=== PATIENT | female | born 1995 | race African-American/Black ===

== ENCOUNTER 2018-07-20 11:11 | Emergency (ER) | payer MEDICAID ==
[~2018-07-20] VITALS: Ht 160 cm; Wt 62.0 kg
[2018-07-20 12:59] LABS: CLARITY URINE CLOUDY (CLEAR); COLOR URINE YELLOW (YELLOW); KETONES URINE NEGATIVE (NEGATIVE); LEUKOCYTE ESTERASE URINE 1+ (NEGATIVE); NITRITE URINE NEGATIVE (NEGATIVE); OCCULT BLOOD URINE NEGATIVE (NEGATIVE); PROTEIN URINE TRACE (NEGATIVE); SPECIFIC GRAVITY URINE 1.027 (1.005-1.030)
[2018-07-20 13:43] LABS: *AMPHETAMINES SCREEN URINE NEGATIVE (NEGATIVE); *BARBITURATES SCREEN URINE NEGATIVE (NEGATIVE); *BENZODIAZEPINES SCREEN URINE NEGATIVE (NEGATIVE); *COCAINE SCREEN URINE NEGATIVE (NEGATIVE); METHADONE URINE SCREEN NEGATIVE (NEGATIVE); PHENCYCLIDINE URINE SCREEN NEGATIVE (NEGATIVE)
[2018-07-20 13:45] LABS: OPIATES URINE SCREEN NEGATIVE (NEGATIVE)
[2018-07-20 13:46] LABS: CANNABINOID URINE SCREEN PRESUMTIVE POSITIVE (NEGATIVE)
[2018-07-20 14:10] VITALS: BP 95/78
== END 2018-07-20 14:25 | disposition home or self-care (01) ==
LOC: ER 11:20
DX: O23.41 Unspecified infection of urinary tract in pregnancy, first trimester (principal); Z3A.01 Less than 8 weeks gestation of pregnancy; O26.891 Other specified pregnancy related conditions, first trimester; R03.0 Elevated blood-pressure reading, without diagnosis of hypertension
CPT/HCPCS: 80305; 81025; 87077; 99283

== ENCOUNTER 2018-08-04 22:24 | Emergency (ER) | payer MEDICAID ==
[~2018-08-04] VITALS: Ht 160 cm; Wt 62.0 kg
[2018-08-04 23:47] LABS: CLARITY URINE CLEAR (CLEAR); COLOR URINE YELLOW (YELLOW); KETONES URINE TRACE (NEGATIVE); LEUKOCYTE ESTERASE URINE TRACE (NEGATIVE); NITRITE URINE NEGATIVE (NEGATIVE); OCCULT BLOOD URINE NEGATIVE (NEGATIVE); PH URINE 5.5 (4.5-8.0); PROTEIN URINE NEGATIVE (NEGATIVE); SPECIFIC GRAVITY URINE 1.027 (1.005-1.030); UROBILINOGEN URINE 0.2 E.U./dL (0.2-1.0)
[2018-08-05] MEDS ORDERED: ACETAMINOPHEN 325MG TABLET PO PRN (00:30)
[2018-08-05 01:30] VITALS: BP 99/65
== END 2018-08-05 01:31 | disposition left against medical advice (07) ==
LOC: ER 23:47
DX: O26.891 Other specified pregnancy related conditions, first trimester (principal); R10.9 Unspecified abdominal pain; R11.0 Nausea; O99.511 Diseases of the respiratory system complicating pregnancy, first trimester; R06.02 Shortness of breath; Z3A.01 Less than 8 weeks gestation of pregnancy; Z98.890 Other specified postprocedural states; Z87.440 Personal history of urinary (tract) infections
CPT/HCPCS: 76801; 81025; 99284

== ENCOUNTER 2018-08-28 20:57 | Emergency (ER) | payer MEDICAID ==
[~2018-08-28] VITALS: Ht 160 cm; Wt 61.0 kg
[2018-08-28 21:20] VITALS: BP 106/59
== END 2018-08-28 22:18 | disposition left against medical advice (07) ==
LOC: ER 20:57
DX: R42 Dizziness and giddiness (principal); Z53.21 Procedure and treatment not carried out due to patient leaving prior to being seen by health care provider

== ENCOUNTER 2018-09-28 09:30 | Emergency (ER) | payer MEDICAID ==
[~2018-09-28] VITALS: Ht 160 cm; Wt 59.0 kg
[2018-09-28 10:08] LABS: CLARITY URINE TURBID (CLEAR); COLOR URINE YELLOW (YELLOW); KETONES URINE TRACE (NEGATIVE); LEUKOCYTE ESTERASE URINE 3+ (NEGATIVE); NITRITE URINE NEGATIVE (NEGATIVE); OCCULT BLOOD URINE 1+ (NEGATIVE); PH URINE 7.5 (4.5-8.0); PROTEIN URINE 2+ (NEGATIVE); SPECIFIC GRAVITY URINE 1.027 (1.005-1.030)
[2018-09-28 12:09] LABS: BASOPHILS % 0.4 % (0.0-2.0); HEMATOCRIT. 39.9 % (36.0-48.0); LYMPHOCYTES % 21.2 % (20.0-50.0); MONOCYTES % 3.5 % (2.0-8.0); NEUTROPHILS % 73.9 % (40.0-76.0); PLATELET 221 x1000/uL (130-400); RED BLOOD CELL COUNT 4.64 mill/uL (4.2-5.4)
[2018-09-28 12:15] LABS: CHLORIDE 105 mEq/L (98-107)
[2018-09-28] MEDS ORDERED: NITROFURANTOIN 100MG M/M CAPSULE PO ONE (12:30)
[2018-09-28 12:40] LABS: B-HCG QUANTITATIVE 20235 mIU/mL (<3)
[2018-09-28 13:17] VITALS: BP 108/54
[2018-09-30 04:15] LABS: CHLAMYDIA TRACHOMATIS NAA Negative (Negative); NEISSERIA GONORRHOEAE NAA Negative (Negative)
== END 2018-09-28 14:16 | disposition home or self-care (01) ==
LOC: ER 09:30
DX: O20.0 Threatened abortion (principal); O23.41 Unspecified infection of urinary tract in pregnancy, first trimester; O98.311 Other infections with a predominantly sexual mode of transmission complicating pregnancy, first trimester; A59.9 Trichomoniasis, unspecified; O26.891 Other specified pregnancy related conditions, first trimester; R03.0 Elevated blood-pressure reading, without diagnosis of hypertension; Z3A.13 13 weeks gestation of pregnancy
CPT/HCPCS: 36415; 76801; 81025; 84702; 86850; 86900; 87210; 87491; 87591; 99284

== ENCOUNTER 2022-05-08 12:17 | Observation (INO) | payer MEDICAID ==
[~2022-05-08] VITALS: Ht 160 cm; Wt 61.2 kg
== END 2022-05-08 15:30 | disposition home or self-care (01) ==
LOC: 8 EST LDRP 12:17
PROVIDERS: ADMIT Obstetrics & Gynecology; ATTEND Obstetrics & Gynecology
DX: O26.853 Spotting complicating pregnancy, third trimester (principal); O62.9 Abnormality of forces of labor, unspecified; O26.893 Other specified pregnancy related conditions, third trimester; R10.9 Unspecified abdominal pain; Z3A.37 37 weeks gestation of pregnancy
CPT/HCPCS: 59025; 76805; 76818; G0378; 99281

== ENCOUNTER 2022-05-08 23:35 | Inpatient (IN) | payer MEDICAID ==
[~2022-05-08] VITALS: Ht 160 cm; Wt 61.0 kg
[2022-05-09] MEDS ORDERED: NALOXONE HCL 0.4 MG/ML 1ML VIAL IM PRN (00:15)
[2022-05-09] MEDS ORDERED: CARBOPROST TROMETHAMINE 250 MCG/ML AMPUL IM PRN (00:15)
[2022-05-09] MEDS ORDERED: LIDOCAINE HCL 1% 10 MG/ML 10ML VIAL IJ SCH (00:15)
[2022-05-09] MEDS ORDERED: RHO(D) IMMUNE GLOBULIN 300 MCG/SYR IM ONE (00:15)
[2022-05-09] MEDS ORDERED: MISOPROSTOL 100MCG TABLET VG SCH (00:15)
[2022-05-09] MEDS ORDERED: METHYLERGONOVINE MALEATE 0.2 MG/ML IM PRN (00:15)
[2022-05-09] MEDS ORDERED: BUTORPHANOL TARTRATE 2 MG/ML VIAL IV PRN (00:15)
[2022-05-09] MEDS: LACTATED RINGERS 1,000 ML IV SCH ×2 (00:33→02:01)
[2022-05-09] MEDS: OXYTOCIN 30 UNITS/500ML NS PMX 500 ML IV SCH ×2 (00:46→02:33)
[2022-05-09 00:51] LABS: CLARITY URINE CLEAR (CLEAR); COLOR URINE YELLOW (YELLOW); KETONES URINE NEGATIVE (NEGATIVE); LEUKOCYTE ESTERASE URINE 1+ (NEGATIVE); NITRITE URINE NEGATIVE (NEGATIVE); OCCULT BLOOD URINE 2+ (NEGATIVE); PH URINE 7.5 (4.5-8.0); PROTEIN URINE NEGATIVE (NEGATIVE); SPECIFIC GRAVITY URINE 1.019 (1.005-1.030)
[2022-05-09 00:52] LABS: BASOPHILS % 0.3 % (0.0-2.0); EOSINOPHILS % 0.6 % (0.0-5.0); HEMATOCRIT. 30.8 % (36.0-48.0); HEMOGLOBIN. 9.9 g/dL (12.0-16.0); LYMPHOCYTES % 19.7 % (20.0-50.0); MEAN CORPUSCULAR HEMOGLOBIN 25.6 pg (28.0-32.0); MEAN CORPUSCULAR VOLUME 79.6 fL (81.0-99.0); MEAN PLATELET VOLUME 8.9 fl (7.4-10.4); MONOCYTES % 6.9 % (2.0-8.0); NEUTROPHILS % 72.5 % (40.0-76.0); PLATELET 230 x1000/uL (130-400); RED BLOOD CELL COUNT 3.87 mill/uL (4.2-5.4)
[2022-05-09 00:56] LABS: CHLORIDE 105 mEq/L (98-107)
[2022-05-09] MEDS ORDERED: RHO(D) IMMUNE GLOBULIN 300 MCG/SYR IM PRN (01:00)
[2022-05-09] MEDS ORDERED: IBUPROFEN 400MG TABLET PO PRN (01:00)
[2022-05-09] MEDS ORDERED: AMPICILLIN 2GM in NS 100ML 100 ML IV NR (01:00)
[2022-05-09 01:04] LABS: *AMPHETAMINES SCREEN URINE NEGATIVE (NEGATIVE); *BARBITURATES SCREEN URINE NEGATIVE (NEGATIVE); *BENZODIAZEPINES SCREEN URINE NEGATIVE (NEGATIVE); CANNABINOID URINE SCREEN NEGATIVE (NEGATIVE); METHADONE URINE SCREEN NEGATIVE (NEGATIVE); OPIATES URINE SCREEN NEGATIVE (NEGATIVE); PHENCYCLIDINE URINE SCREEN NEGATIVE (NEGATIVE)
[2022-05-09 01:08] LABS: *COCAINE SCREEN URINE PRESUMTIVE POSITIVE (NEGATIVE)
[2022-05-09 01:30] LABS: HEPATITIS B SURFACE ANTIGEN NEGATIVE
[2022-05-09 02:35] VITALS: BP 107/55
[2022-05-09 02:40] VITALS: BP 103/53
[2022-05-09 03:23] LABS: PARTIAL THROMBOPLASTIN TIME 30.5 sec (23.4-31.0); PROTHROMBIN TIME 10.3 sec (9.6-11.0)
[2022-05-09] MEDS ORDERED: OXYTOCIN 30 UNITS/500ML NS PMX 500 ML IV SCH (03:30)
[2022-05-09 04:00] VITALS: BP 99/53
[2022-05-09] MEDS ORDERED: AMPICILLIN 1,000 MG in SODIUM CHLORIDE 0.9% 50 ML IV SCH (07:00)
[2022-05-09 08:00] VITALS: BP 104/61
[2022-05-09] MEDS ORDERED: PRENATAL VIT/FE FUMARATE/FA TABLET PO SCH (09:00)
[2022-05-09 16:00] VITALS: BP 112/56
[2022-05-09 20:00] VITALS: BP 103/51
[2022-05-09] MEDS: IBUPROFEN 800MG TABLET PO PRN (20:04)
[2022-05-10 04:00] VITALS: BP 94/60
[2022-05-10 07:45] LABS: BASOPHILS % 0.3 % (0.0-2.0); HEMATOCRIT. 32.7 % (36.0-48.0); HEMOGLOBIN. 10.5 g/dL (12.0-16.0); LYMPHOCYTES % 22.9 % (20.0-50.0); MEAN CORPUSCULAR HEMOGLOBIN 25.9 pg (28.0-32.0); MEAN CORPUSCULAR VOLUME 80.7 fL (81.0-99.0); MEAN PLATELET VOLUME 8.9 fl (7.4-10.4); MONOCYTES % 5.9 % (2.0-8.0); NEUTROPHILS % 68.9 % (40.0-76.0); PLATELET 226 x1000/uL (130-400); RED BLOOD CELL COUNT 4.05 mill/uL (4.2-5.4); RED CELL DISTRIBUTION WIDTH 14.7 % (11.6-14.6)
[2022-05-10] MEDS: FERROUS SULFATE 325MG TABLET PO SCH ×2 (07:49→12:14)
[2022-05-10 08:00] VITALS: BP 99/63
[2022-05-10] MEDS: IBUPROFEN 800MG TABLET PO PRN (12:14)
[2022-05-10 16:00] VITALS: BP 112/60
[2022-05-10 20:00] VITALS: BP 94/57
[2022-05-11 04:00] VITALS: BP 100/64
[2022-05-11] MEDS ORDERED: IBUP-2030 PO (05:55)
[2022-05-11] MEDS: FERROUS SULFATE 325MG TABLET PO SCH (07:30)
[2022-05-11 08:15] VITALS: BP 91/58
== END 2022-05-11 14:25 | disposition home or self-care (01) | DRG 560 ==
LOC: OBSVTOIN 23:35 → 8 EST LDRP 23:35 → 8EST 05-09 03:19
PROVIDERS: ADMIT Obstetrics & Gynecology; ATTEND Obstetrics & Gynecology
PROC: 10E0XZZ Delivery of Products of Conception, External Approach (ICD-10-PCS; principal; 2022-05-09)
DX: O60.14X0 Preterm labor third trimester with preterm delivery third trimester, not applicable or unspecified (principal); Z37.0 Single live birth; O99.324 Drug use complicating childbirth; Z20.822 Contact with and (suspected) exposure to COVID-19; O34.211 Maternal care for low transverse scar from previous cesarean delivery; F14.10 Cocaine abuse, uncomplicated; O99.02 Anemia complicating childbirth; Z3A.36 36 weeks gestation of pregnancy
CPT/HCPCS: 36415; 80053; 80305; 80353; 81003; 85025; 86592; 86703; 86762; 86850; 86900; 87340; 87426; 99281; G0378; J0290; J0595; J3490; A4315; J2590

== ENCOUNTER 2022-12-02 18:05 | Emergency (ER) | payer MEDICAID ==
[~2022-12-02] VITALS: Ht 160 cm; Wt 77.8 kg
[~2022-12-02 18:05] MED LIST: IBUP-2030 PO
[2022-12-02 18:15] VITALS: BP 123/61
[2022-12-02 19:14] LABS: CLARITY URINE CLEAR (CLEAR); COLOR URINE YELLOW (YELLOW); KETONES URINE TRACE (NEGATIVE); LEUKOCYTE ESTERASE URINE 1+ (NEGATIVE); NITRITE URINE NEGATIVE (NEGATIVE); OCCULT BLOOD URINE NEGATIVE (NEGATIVE); PH URINE 5.5 (4.5-8.0); PROTEIN URINE NEGATIVE (NEGATIVE); SPECIFIC GRAVITY URINE 1.024 (1.005-1.030)
[2022-12-02 19:58] LABS: BASOPHILS % 0.2 % (0.0-2.0); EOSINOPHILS % 1.5 % (0.0-5.0); HEMATOCRIT. 33.5 % (36.0-48.0); HEMOGLOBIN. 10.9 g/dL (12.0-16.0); LYMPHOCYTES % 25.9 % (20.0-50.0); MEAN CORPUSCULAR HEMOGLOBIN 26.5 pg (28.0-32.0); MEAN CORPUSCULAR VOLUME 81.3 fL (81.0-99.0); MEAN PLATELET VOLUME 9.3 fl (7.4-10.4); MONOCYTES % 9.2 % (2.0-8.0); NEUTROPHILS % 63.2 % (40.0-76.0); PLATELET 212 x1000/uL (130-400); RED BLOOD CELL COUNT 4.12 mill/uL (4.2-5.4); RED CELL DISTRIBUTION WIDTH 15.4 % (11.6-14.6)
[2022-12-02 20:06] LABS: CHLORIDE 107 mEq/L (98-107)
[2022-12-02 20:22] LABS: HCG SCREEN POSITIVE
== END 2022-12-02 23:24 | disposition home or self-care (01) ==
LOC: ER 18:05
DX: O26.892 Other specified pregnancy related conditions, second trimester (principal); Z3A.19 19 weeks gestation of pregnancy
CPT/HCPCS: 36415; 76805; 80053; 81003; 81025; 84702; 84703; 85025; 86850; 86900; 99284